=== PATIENT | female | born 1995 | race Caucasian/White ===

== ENCOUNTER 2023-02-05 05:58 | Emergency (ER) | payer OTHER ==
[2023-02-05 06:08] VITALS: PULSE 77; TEMP 98.6; BMI 24.9
[2023-02-05] MEDS ORDERED: ACETAMINOPHEN 325 MG TABLET (FP) PO ONE (07:36)
[2023-02-05] MEDS ORDERED: ACETAMINOPHEN 325 MG TABLET (FP) ONE (08:40)
[2023-02-05 08:51] LABS: BASO % 0.4 % (0-2.0); EOS % 0.1 % (0-4.5); HEMATOCRIT 38.9 % (32.4-45.2); LYMPH % 13.4 % (8-40); MCH 29.1 pg (25.7-33.7); MCHC 33.3 g/dl (32.0-36.0); MEAN CELL VOLUME 87.5 fl (80-96); MEAN PLT VOLUME 7.7 fl (7.5-11.1); MONO % 4.3 % (3.8-10.2); NEUT % 81.8 % (42.8-82.8); PLATELET COUNT 347 10^3/uL (134-434); RBC 4.45 M/mm3 (3.60-5.2); WHITE BLOOD COUNT 14.8 K/mm3 (4.0-10.0)
[2023-02-05 08:55] LABS: EPI CELLS 6 /uL (0-25.1); HYALINE CASTS 2 /uL (0-3.1); URINE APPEARANCE Error; URINE BACTERIA >9,000 /uL (0-1359); URINE BILIRUBIN NEGATIVE (NEGATIVE); URINE COLOR YELLOW; URINE GLUCOSE (UA) NEGATIVE (NEGATIVE); URINE KETONE NEGATIVE (NEGATIVE); URINE LEUK ESTERASE 3+ (NEGATIVE); URINE NITRITE NEGATIVE (NEGATIVE); URINE PROTEIN TRACE (NEGATIVE); URINE RBC 222 /uL (0-23.9); URINE UROBILINOGEN 0.2 mg/dL (0.2-1.0); URINE WBC 697 /uL (0-25.8)
[2023-02-05 08:56] LABS: HCG,QUALITATIVE URINE Negative
[2023-02-05] MEDS ORDERED: SODIUM CHLORIDE 0.9% 500 ML INFUS.BAG IV ONE (09:18)
[2023-02-05 09:20] LABS: BLOOD UREA NITROGEN 13.2 mg/dL (7-18); CALCIUM 9.4 mg/dL (8.5-10.1)
[2023-02-05 09:24] LABS: CREATININE 0.7 mg/dL (0.55-1.3)
[2023-02-05 09:25] LABS: BILIRUBIN,TOTAL 0.4 mg/dL (0.2-1); TOT PROT 8.1 g/dl (6.4-8.2)
[2023-02-05] MEDS ORDERED: CEFTRIAXONE 1 GM/50 ML BAG ONE (09:50)
[2023-02-05] MEDS ORDERED: cefTRIAXone SODIUM 1 GM VIAL ONE (10:34)
[2023-02-05 11:31] VITALS: BP 100/68; RESP 16
[2023-02-05 12:17] LABS: HIV INTERPRETATION NEGATIVE (NEGATIVE)
== END 2023-02-05 11:21 | disposition home or self-care (01) ==
LOC: JER 05:58
DX: N72 Inflammatory disease of cervix uteri (principal); N39.0 Urinary tract infection, site not specified
CPT/HCPCS: 36415; 76830-TC; 80053; 81003; 84702; 84703; 85025; 86803; 87086; 87186; 87389; 99284-25

== ENCOUNTER 2023-04-26 08:23 | Emergency (ER) | payer OTHER ==
[2023-04-26 08:59] VITALS: RESP 17; BMI 35.1
[2023-04-26] MEDS: LACTATED RINGERS SOLUTION 1000 ML INFUS.BAG IV ONE (09:13)
[2023-04-26] MEDS: ONDANSETRON 4 MG/2 ML VIAL IVPUSH ONE (09:13)
[2023-04-26] MEDS ORDERED: ONDANSETRON 4 MG/2 ML VIAL ONE (09:17)
[2023-04-26 09:59] LABS: BASO % 0.5 % (0-2.0); EOS % 0.5 % (0-4.5); HEMATOCRIT 36.9 % (32.4-45.2); HEMOGLOBIN 12.3 GM/dL (10.7-15.3); LYMPH % 12.7 % (8-40); MCH 28.7 pg (25.7-33.7); MCHC 33.2 g/dl (32.0-36.0); MEAN CELL VOLUME 86.5 fl (80-96); MEAN PLT VOLUME 7.8 fl (7.5-11.1); MONO % 11.2 % (3.8-10.2); NEUT % 75.1 % (42.8-82.8); PLATELET COUNT 249 10^3/uL (134-434); RBC 4.27 M/mm3 (3.60-5.2); RDW 12.8 % (11.6-15.6)
[2023-04-26 10:06] LABS: EPI CELLS >36 /uL (0-25.1); HYALINE CASTS 1 /uL (0-3.1); URINE APPEARANCE CLOUDY; URINE BACTERIA 1197 /uL (0-1359); URINE BILIRUBIN NEGATIVE (NEGATIVE); URINE COLOR YELLOW; URINE GLUCOSE (UA) NEGATIVE (NEGATIVE); URINE KETONE NEGATIVE (NEGATIVE); URINE LEUK ESTERASE 3+ (NEGATIVE); URINE NITRITE NEGATIVE (NEGATIVE); URINE PROTEIN NEGATIVE (NEGATIVE); URINE RBC 15 /uL (0-23.9); URINE UROBILINOGEN 0.2 mg/dL (0.2-1.0); URINE WBC 538 /uL (0-25.8)
[2023-04-26 10:27] LABS: POTASSIUM 4.4 mmol/L (3.5-5.1)
[2023-04-26 10:29] LABS: CALCIUM 8.6 mg/dL (8.5-10.1)
[2023-04-26 10:31] LABS: ALBUMIN 3.6 g/dl (3.4-5.0); BLOOD UREA NITROGEN 7.8 mg/dL (7-18)
[2023-04-26 10:34] LABS: CREATININE 0.7 mg/dL (0.55-1.3)
[2023-04-26 10:35] LABS: BILIRUBIN,TOTAL 0.2 mg/dL (0.2-1); TOT PROT 7.2 g/dl (6.4-8.2)
[2023-04-26 10:48] LABS: EPI CELLS 30 /uL (0-25.1); HYALINE CASTS 0 /uL (0-3.1); URINE APPEARANCE CLEAR; URINE BACTERIA 223 /uL (0-1359); URINE BILIRUBIN NEGATIVE (NEGATIVE); URINE COLOR YELLOW; URINE GLUCOSE (UA) NEGATIVE (NEGATIVE); URINE KETONE NEGATIVE (NEGATIVE); URINE LEUK ESTERASE 1+ (NEGATIVE); URINE NITRITE NEGATIVE (NEGATIVE); URINE PROTEIN NEGATIVE (NEGATIVE); URINE RBC 89 /uL (0-23.9); URINE UROBILINOGEN 0.2 mg/dL (0.2-1.0); URINE WBC 61 /uL (0-25.8)
[2023-04-26 11:20] LABS: URINE CRYSTALS NONE SEEN /hpf
[2023-04-26 11:21] VITALS: TEMP 100.4
[2023-04-26 11:24] VITALS: BP 96/55; PULSE 68
[2023-04-26] MEDS: CEFPODOXIME PROXETIL 200 MG TABLET [NF] PO ONE (12:04)
== END 2023-04-26 12:05 | disposition home or self-care (01) ==
LOC: JER 08:23
PROC: 3E033NZ Introduction of Analgesics, Hypnotics, Sedatives into Peripheral Vein, Percutaneous Approach (ICD-10-PCS; principal; 2023-04-26)
DX: O23.41 Unspecified infection of urinary tract in pregnancy, first trimester (principal); O99.891 Other specified diseases and conditions complicating pregnancy; R42 Dizziness and giddiness; R11.2 Nausea with vomiting, unspecified; R05.9 Cough, unspecified; J02.9 Acute pharyngitis, unspecified; R53.1 Weakness; R68.83 Chills (without fever); Z3A.01 Less than 8 weeks gestation of pregnancy; Z20.822 Contact with and (suspected) exposure to COVID-19
CPT/HCPCS: 0241U-QW; 36415; 80053; 81003; 83735; 84702; 85025; 86850; 86900; 86901; 87070; 87086; 87651; 93005; 93010; 99284-25

== ENCOUNTER 2023-12-14 20:30 | Inpatient (IN) | payer OTHER ==
[2023-12-14] MEDS ORDERED: AMPICILLIN SODIUM 2 GM VIAL ONE (20:57)
[2023-12-14] MEDS: AMPICILLIN - 2 GM in SODIUM CHLORIDE 100 ML IVPB ONE (21:00)
[2023-12-14 21:15] LABS: BASO % 0.5 % (0-2.0); HEMATOCRIT 37.8 % (32.4-45.2); LYMPH % 28.7 % (8-40); MCHC 34.5 g/dl (32.0-36.0); MEAN PLT VOLUME 9.3 fl (7.5-11.1); MONO % 6.6 % (3.8-10.2); NEUT % 63.2 % (42.8-82.8); PLATELET COUNT 185 10^3/uL (134-434); RBC 4.35 M/mm3 (3.60-5.2); RDW 14.5 % (11.6-15.6); WHITE BLOOD COUNT 6.5 K/mm3 (4.0-10.0)
[2023-12-14] MEDS: ELECTROLYTE-148 SOLN 500 ML IV ONE ×2 (21:30→23:00)
[2023-12-14 21:42] LABS: CHLORIDE 109 mmol/L (98-107); POTASSIUM 4.2 mmol/L (3.5-5.1); SODIUM 138 mmol/L (136-145)
[2023-12-14 21:44] LABS: ANION GAP 8 mmol/L (4-13); BLOOD UREA NITROGEN 11.1 mg/dL (7-18); CALCIUM 9.2 mg/dL (8.5-10.1); CO2 21 mmol/L (21-32); GLUCOSE,RANDOM 148 mg/dL (74-106)
[2023-12-14 21:46] LABS: INR 0.92 (0.83-1.09); PROTHROMBIN TIME (PATIENT) 10.4 SEC (9.7-13.0)
[2023-12-14 21:48] LABS: CREATININE 0.7 mg/dL (0.55-1.3)
[2023-12-14 22:00] LABS: HEPATITIS B SURFACE AG MATERN NON-REACTIVE (NONREACTIVE)
[2023-12-14 22:01] LABS: SYPHILIS W/ RPR CONF NON-REACTIVE (NONREACTIVE)
[2023-12-14] MEDS ORDERED: FENTANYL/BUPIVACAINE/NS/PF - PCEA - 50 ML DISP.SYRIN EP ONE (22:19)
[2023-12-14] MEDS ORDERED: NALOXONE HCL 0.4 MG/ML VIAL IVPUSH PRN (22:24)
[2023-12-14 22:30] LABS: HIV INTERPRETATION NEGATIVE (NEGATIVE)
[2023-12-14 22:43] VITALS: BMI 33.8
[2023-12-14] MEDS: FENTANYL/BUPIVACAINE/NS/PF - PCEA - 50 ML DISP.SYRIN EP SCH (23:15)
[2023-12-15] MEDS: AMPICILLIN - 1 GM in SODIUM CHLORIDE 100 ML IVPB SCH (01:00)
[2023-12-15] MEDS ORDERED: AMPICILLIN SODIUM 1 GM VIAL ONE ×2 (01:11→04:38)
[2023-12-15] MEDS ORDERED: FENTANYL/BUPIVACAINE/NS/PF - PCEA - 50 ML DISP.SYRIN EP ONE (02:44)
[2023-12-15] MEDS ORDERED: OXYTOCIN 20 UNITS in 0.9% NS 20 UNIT/1,000 ML INFUS.BAG IV ONE (04:03)
[2023-12-15] MEDS ORDERED: LIDOCAINE HCL 1% PRESERVATIVE FREE - 30ML VIAL ONE (04:27)
[2023-12-15] MEDS ORDERED: OXYTOCIN 30 UNITS in 0.9% NS 30 UNIT/500 ML INFUS.BAG IVPB ONE (04:50)
[2023-12-15] MEDS: CITRIC ACID/SODIUM CITRATE 30 ML UNIT-DOSE CUP PO ONE (05:40)
[2023-12-15] MEDS ORDERED: ELECTROLYTE-148 SOLN 500 ML IV ONE (05:40)
[2023-12-15] MEDS ORDERED: LIDOCAINE HCL/PF 2% SDV 5ML VIAL ONE (06:10)
[2023-12-15] MEDS ORDERED: EPINEPHrine/PF 1 MG/1 ML (1:1,000) AMPULE ONE (06:10)
[2023-12-15] MEDS ORDERED: ceFAZolin SODIUM 1 GM VIAL ONE (06:10)
[2023-12-15] MEDS ORDERED: KETOROLAC TROMETHAMINE 30 MG/1 ML VIAL ONE (06:10)
[2023-12-15] MEDS ORDERED: DEXAMETHASONE SOD PHOSPHATE 4 MG/1 ML VIAL ONE (06:10)
[2023-12-15] MEDS ORDERED: METOCLOPRAMIDE HCL INJECTION 10 MG/2 ML VIAL ONE (06:10)
[2023-12-15] MEDS ORDERED: OXYTOCIN 10 UNITS/ML VIAL ONE (06:10)
[2023-12-15] MEDS ORDERED: ELECTROLYTE-148 SOLN 1,000 ML IV SCH (06:10)
[2023-12-15] MEDS ORDERED: ONDANSETRON 4 MG/2 ML VIAL ONE (06:10)
[2023-12-15] MEDS ORDERED: morphine SULFATE/PF 1 MG/2 ML (2cc Syringe - QUVA) ONE (06:12)
[2023-12-15] MEDS ORDERED: FENTANYL CITRATE/PF 50 MCG/ML VIAL ONE (06:12)
[2023-12-15] MEDS ORDERED: AZITHROMYCIN IVPB 500 MG/250 ML BAG IVPB ONE (06:22)
[2023-12-15] MEDS ORDERED: ESMOLOL HCL 100,000 MCG/10 ML VIAL ONE (06:57)
[2023-12-15] MEDS ORDERED: METHYLERGONOVINE MALEATE 0.2 MG/1 ML AMP IM PRN (07:46)
[2023-12-15] MEDS ORDERED: BENZOCAINE 28 GM HEMORRHOIDAL OINTMENT TP PRN (07:46)
[2023-12-15] MEDS ORDERED: WITCH HAZEL 50% (TUCKS) 40 PAD/JAR PAD TP PRN (07:46)
[2023-12-15] MEDS: OXYTOCIN 20 UNITS in 0.9% NS 20 UNIT/1,000 ML INFUS.BAG IV SCH (07:50)
[2023-12-15 08:53] LABS: CORD BASE EXCESS -3.6 mmol/L (0-2); CORD HCO3 24.5 mmHg (20-29); CORD PCO2 55.5 mmHg (30-78); CORD pH 7.262 (7.14-7.44)
[2023-12-15 09:10] LABS: CORD BASE EXCESS -1.4 mmol/L (0-2); CORD HCO3 28.1 mmHg (20-29); CORD PCO2 67.2 mmHg (30-78); CORD pH 7.239 (7.14-7.44)
[2023-12-15] MEDS ORDERED: oxyCODONE HCL 5 MG TABLET PO PRN (19:46)
[2023-12-15] MEDS: IBUPROFEN 800 MG/8 ML IJ IVPB PRN (23:21)
[2023-12-16] MEDS: oxyCODONE HCL 5 MG TABLET PO PRN (02:35)
[2023-12-16] MEDS: SIMETHICONE 80 MG TAB.CHEW (FP) PO PRN (02:36)
[2023-12-16 06:03] VITALS: RESP 18
[2023-12-16] MEDS: SENNOSIDES/DOCUSATE COMBO (SENNA PLUS) TABLET (UD) PO PRN (06:39)
[2023-12-16] MEDS ORDERED: BISACODYL 10 MG SUPP.RECT RC PRN (07:46)
[2023-12-16 09:07] LABS: BASO % 0.4 % (0-2.0); EOS % 0.4 % (0-4.5); HEMATOCRIT 29.7 % (32.4-45.2); LYMPH % 19.3 % (8-40); MCH 29.8 pg (25.7-33.7); MCHC 33.8 g/dl (32.0-36.0); MEAN CELL VOLUME 88.2 fl (80-96); MEAN PLT VOLUME 8.8 fl (7.5-11.1); MONO % 4.7 % (3.8-10.2); NEUT % 75.2 % (42.8-82.8); PLATELET COUNT 151 10^3/uL (134-434); RBC 3.37 M/mm3 (3.60-5.2); RDW 14.8 % (11.6-15.6); WHITE BLOOD COUNT 12.6 K/mm3 (4.0-10.0)
[2023-12-16] MEDS: IBUPROFEN 600 MG TABLET (FP) PO PRN (09:17)
[2023-12-16] MEDS: ENOXAPARIN NA (PORCINE) 40 MG/0.4 ML DISP.SYRIN SQ SCH (09:17)
[2023-12-16] MEDS: IRON SUCROSE INJECTION 200 MG in SODIUM CHLORIDE 100 ML IVPB ONE (10:07)
[2023-12-16] MEDS: FERROUS SO4 325 MG TABLET (FP) PO SCH (11:46)
[2023-12-18] MEDS: ACETAMINOPHEN 325 MG TABLET (FP) PO PRN (05:26)
[2023-12-18 09:13] VITALS: BP 123/74; PULSE 100; TEMP 98.5
[2023-12-18 13:17] LABS: BASO % 0.5 % (0-2.0); EOS % 2.6 % (0-4.5); HEMATOCRIT 31.2 % (32.4-45.2); HEMOGLOBIN 10.3 GM/dL (10.7-15.3); LYMPH % 20.8 % (8-40); MCH 29.6 pg (25.7-33.7); MEAN CELL VOLUME 89.7 fl (80-96); MEAN PLT VOLUME 7.9 fl (7.5-11.1); MONO % 3.6 % (3.8-10.2); NEUT % 72.5 % (42.8-82.8); PLATELET COUNT 206 10^3/uL (134-434); RBC 3.48 M/mm3 (3.60-5.2); RDW 14.5 % (11.6-15.6); WHITE BLOOD COUNT 8.9 K/mm3 (4.0-10.0)
== END 2023-12-18 14:20 | disposition home or self-care (01) | DRG 788 ==
LOC: JDEL 20:30 → JLDR 20:50 → J3W 12-15 14:00
PROVIDERS: ADMIT Obstetrics & Gynecology; ATTEND Obstetrics & Gynecology
PROC: 10D00Z1 Extraction of Products of Conception, Low, Open Approach (ICD-10-PCS; principal; 2023-12-15)
DX: O32.4XX0 Maternal care for high head at term, not applicable or unspecified (principal); O75.81 Maternal exhaustion complicating labor and delivery; O24.429 Gestational diabetes mellitus in childbirth, unspecified control; O99.824 Streptococcus B carrier state complicating childbirth; Z3A.38 38 weeks gestation of pregnancy; Z37.0 Single live birth
CPT/HCPCS: 36415; 36600; 80048; 82803; 82962; 85025; 85610; 85730; 86780; 86803; 86850; 86900; 86901; 87340; 87389; 88307-TC; 94010